=== PATIENT | female | born 1985 | race Asian ===

== ENCOUNTER → 2024-04-11 | Outpatient (CLI) | payer OTHER | END | disposition home or self-care (01) | LOC: RADMN 07:03 | PROVIDERS: ATTEND Internal Medicine Geriatric Medicine | DX: N20.0 Calculus of kidney (principal); K44.9 Diaphragmatic hernia without obstruction or gangrene; K42.9 Umbilical hernia without obstruction or gangrene | CPT/HCPCS: 74176 ==

== ENCOUNTER 2025-06-04 09:46 | Emergency (ER) | payer OTHER ==
[~2025-06-04] VITALS: Ht 175.3 cm; Wt 59.1 kg
[2025-06-04 09:50] VITALS: TEMP 98
[2025-06-04 11:15] VITALS: BP 120/83; PULSE 86; RESP 16; O2SAT 100
[2025-06-04] MEDS ORDERED: IBUP-1554 PO (11:24)
== END 2025-06-04 12:12 | disposition home or self-care (01) ==
LOC: EMS 09:49
DX: S60.211A Contusion of right wrist, initial encounter (principal); S60.00XA Contusion of unspecified finger without damage to nail, initial encounter; X58.XXXA Exposure to other specified factors, initial encounter; Y93.89 Activity, other specified; Y92.89 Other specified places as the place of occurrence of the external cause; Y99.8 Other external cause status
CPT/HCPCS: 99284; 73110-TC; 73130-TC; Z7502